=== PATIENT | male | born 1995 | race Caucasian/White ===

== ENCOUNTER 2018-04-24 02:45 | Emergency (ER) | payer OTHER ==
[~2018-04-24] VITALS: Ht 182.9 cm; Wt 79.4 kg
[2018-04-24] MEDS ORDERED: Roxicodone5 MG PO (03:36)
[2018-04-24] MEDS ORDERED: LIDO700A20 TOP (03:37)
== END 2018-04-24 04:20 | disposition home or self-care (01) ==
LOC: ER 02:45
DX: M47.896 Other spondylosis, lumbar region (principal)
CPT/HCPCS: 99283